=== PATIENT | male | born 1935 | race Caucasian/White ===

== ENCOUNTER → 2017-03-06 | Outpatient (CLI) | payer MEDICARE, OTHER ==
--- NOTE | 2017-03-06 13:25 | RADRPT ---
PROCEDURE: XR Bilateral Hips. CLINICAL INDICATION: Bilateral hip pain. TECHNIQUE: Four views. Frontal and lateral right hip. Frontal and lateral left hip. COMPARISON: 05/12/2014. FINDINGS: There is no fracture or dislocation. The soft tissues are normal. Articular surfaces are intact. There is no lytic or blastic lesion. The upper pelvis is not included on the images. IMPRESSION: 1. Unremarkable images of both hips. 2. No change from 05/12/2014. RPTAT: QQ .Esteban Monroe MD, MD Date Time Electronically viewed and signed by .Esteban Monroe MD, MD on 03/06/2017 13:24 .R/
--- NOTE | 2017-03-06 15:42 | HKNOTE ---
DATE OF SERVICE: 03/06/2017 MAIN COMPLAINT: Pain in both hips. HISTORY OF MAIN COMPLAINT: The patient is an 81-year-old male who complains of pain in both his hip s which has been present for "many months." There has not been any history of injury to his hips. He has not seen any other orthopedic doctor for his hip problems. The patient has a long history of problems with his lumbar spine. He has had 3 surgeries to the lum bar spine, starting in 1996. PRESENT COMPLAINTS: Patient's main pain is in his right hip. The pain in the right "hip" is locali zed over the greater trochanter and the right buttock and radiates down the leg to the ankle. He ge ts numbness and tingling in the leg in the same distribution. He can lie on his right side. His left hip has the same pain distribution except that the pain only radiates to the knee and "some times to my duke." He takes [place] 10/325 as needed and also Baclofen. He can only walk about 200 feet and then the yessenia n is "excruciating." He does use a cane part of the time. Note that he also has a very bad balance problem. He limps some of the time. His right leg feels longer than the left. He does not have a shoe lift. He cannot clip his toenails or tie his shoelaces. PAST ORTHOPEDIC HISTORY: PREVIOUS ORTHOPEDIC OPERATIONS: Lumbar spine surgery 1996 and 07/26/2004. Multiple knee surgeries, shoulder surgeries, Briones's neuroma, cut off the small finger of his left hand with a chainsaw. R ight total knee replacement. PRIOR CORTISONE INTAKE: Has had many cortisone injections. ALCOHOL INTAKE: A glass of red wine daily. OTHER JOINT PROBLEMS: Knee pain. Not sure if it radiates from his hips. BLOOD TESTS FOR ARTHRITIS: Yes, does not know the results, it is to hips and knees, somewhat vague about this. WORK STATUS: Patient is retired. PAST MEDICAL HISTORY 1. Hypertension. 2. A small brain aneurysm. 3. 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 Hypercholesterolemia. 5. Depression. 6. Reflux esophagitis. 7. Hypothyroid. 8. Vertigo. 9. Muscle spasms in both legs. 10. Low testosterone levels. 11. Sleep apnea. 12. Hearing difficulty. PAST SURGICAL HISTORY: 1. Lumbar spine fusion 07/26/2004. 2. Right total knee replacement in 1996. 3. Cholecystectomy. 4. Appendectomy. 5. Cervical spine fusion (7th spine fusion). 6. Lumbar spine surgery 3 times. 7. Multiple knee surgeries. 8. Multiple shoulder surgeries. 9. Removal of Briones's neuroma. 10. Amputation of the small finger. ALLERGIES: NONE LISTED. MEDICATIONS: 1. . 2. Losartan. 3. Lipitor. 4. Cymbalta. 5. Plavix. 6. Protonix. 7. Levothyroxine. 8. Meclizine. 9. [place]. 10. Hydroxyzine. 11. Baclofen. 12. Aspirin. 13. Fexofenadine. 14. Pancreatin. 15. Testosterone. FAMILY HISTORY: Noncontributory. SYSTEMS REVIEW: Prone to severe headaches and dizzy spells, heartburn, gait disturbance, hypertensi on, otherwise negative. HABITS: Patient does not smoke. He drinks 1 glass of red wine a day. PHYSICAL EXAMINATION GENERAL: The patient is an overweight 81-year-old male. He comes in with his , Tiera. He walk s without a walking aid. VITAL SIGNS: Height 5 feet 9 inches, weight 209 pounds, blood pressure 155/65, temperature 98.9. BACK: Extension 30%, lateral flexion left and right each 50%. Inspection of the spine reveals pain in the right "hip and thigh" on forced flexion, extension and lateral flexion to the left and right . There is no lumbar paraspinal muscle spasm. The pelvis is level. Facet stress test is negative cody aterally. Palpation of the spine demonstrates no tenderness of the spinous processes, facet joints, sacroiliac joint, sciatic notch, or posterior thigh. NEUROLOGIC: Motor examination reveals no muscle deficit in the lower extremities. Deep tendon refle xes in the lower extremities: Right knee jerk plus, left knee jerk plus, right ankle jerk plus, lef t ankle jerk plus. Straight leg raising is negative bilaterally at 85 degrees. Lasegue and SARIKA celso ts are negative. HIPS: Examination of the right hip: A full range of motion without pain. Marked tenderness over t he right greater trochanter. Examination of the left hip: A full range of motion without pain. Ma rked tenderness over the left greater trochanter. EXAMINATION OF THE RIGHT KNEE: A 28 inch incision for previous right knee replacement. Full range of motion. No pain. No external sign of infection or inflammation. LEFT KNEE: The left knee shows normal alignment. Active and passive extension is 0 degrees. Active and passive flexion is 135 degrees. The medial and lateral collateral ligaments and cruciate ligamen ts are intact. Desi test is negative. Two plus crepitus in the knee, none in the patella. There is no effusion, tenderness, scarring, or cysts. The patella tracks normally. There is no tenderness on the articular surface of the patella or in the patellar groove. The Q angle is normal. IMAGING: Plain x-rays of the pelvis and hips obtained today show approximately 20% narrowing of bot h hip joint spaces, but are otherwise completely normal. DIAGNOSES: 1. Trochanteric bursitis of both hips. 2. Status post multiple lumbar spine surgeries. 3. Symptoms of sciatica. 4. Hyperthyroid. 5. Currently on Plavix. in a block. 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 MANAGEMENT: Under sterile conditions, given injection of 2 mL of Kenalog and 6 mL of 2% lidocaine i nto each trochanteric bursa. He was advised that he could repeat this every 3 months as needed, but preferably over longer periods. He was advised to return to his spine doctor for further evaluation of his complex spine problems. Dictated By: JENNIFER JOSEPH/EDWARD Conf#: [id number] DID#: [id number]
== END | disposition home or self-care (01) ==
LOC: HKI 10:45
DX: M70.62 Trochanteric bursitis, left hip (principal); M70.61 Trochanteric bursitis, right hip; M54.40 Lumbago with sciatica, unspecified side; I10 Essential (primary) hypertension; I67.1 Cerebral aneurysm, nonruptured; I66.3 Occlusion and stenosis of cerebellar arteries; E78.00 Pure hypercholesterolemia, unspecified; F32.9 Major depressive disorder, single episode, unspecified; E03.9 Hypothyroidism, unspecified; E29.1 Testicular hypofunction; Z98.1 Arthrodesis status
CPT/HCPCS: 20610; 73522; G0463